=== PATIENT | female | born 1970 | race Caucasian/White ===

== ENCOUNTER 2018-12-17 08:00 | Outpatient (CLI) | payer MEDICAID ==
[~2018-12-17 08:00] MED LIST: MOTRIN600 MG PO; PERCOCET 10/3251 TA1 PO; TUMS500 MG PO; VITAFOL-OB CA1 UDTAB PO
== END 2018-12-17 09:00 | disposition home or self-care (01) ==
LOC: D.MAMMO 08:00
DX: Z12.31 Encounter for screening mammogram for malignant neoplasm of breast (principal)